=== PATIENT | male | born 1990 | race Caucasian/White ===

== ENCOUNTER 2021-04-30 09:34 | Emergency (ER) | payer OTHER ==
[~2021-04-30] VITALS: Ht 185.4 cm; Wt 102.3 kg
[2021-04-30 09:49] VITALS: BP 142/85
--- NOTE | 2021-04-30 10:04 | NUR ---
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
== END 2021-04-30 11:05 | disposition home or self-care (01) ==
LOC: ER 09:35
DX: S93.401A Sprain of unspecified ligament of right ankle, initial encounter (principal); M25.571 Pain in right ankle and joints of right foot; W19.XXXA Unspecified fall, initial encounter; Y93.89 Activity, other specified; Y92.89 Other specified places as the place of occurrence of the external cause; Y99.8 Other external cause status
CPT/HCPCS: 73610; 99283